=== PATIENT | male | born 1970 | race Caucasian/White ===

== ENCOUNTER 2016-06-28 03:33 | Inpatient (IN) | payer SELFPAY ==
[2016-06-28] MEDS ORDERED: WATER FOR INJECTION,STERILE 10 ML ONE (03:36)
[2016-06-28] MEDS ORDERED: LORAZEPAM INJ 2 MG/ML VIAL ONE ×6 (03:36→05:47)
[2016-06-28] MEDS ORDERED: OLANZAPINE 10 MG VIAL IM ONE ×2 (03:36→04:00)
[2016-06-28] MEDS ORDERED: IV NS 0.9% 2,000 ML ONE (03:41)
[2016-06-28] MEDS ORDERED: IV SET PRIMARY 1 EA INFUS.SET MC ONE ×2 (03:41→05:27)
[2016-06-28] MEDS ORDERED: ASPIRIN 81 MG TAB.CHEW ONE (03:57)
[2016-06-28] MEDS ORDERED: IV NS 0.9% 1,000 ML BAG IV ONE ×2 (04:00→05:30)
[2016-06-28] MEDS ORDERED: ASPIRIN 325 MG TABLET PO ONE (04:00)
[2016-06-28] MEDS ORDERED: LORAZEPAM INJ 2 MG/ML VIAL IVP ONE (04:00)
[2016-06-28] MEDS ORDERED: LORAZEPAM INJ 2 MG/ML VIAL IV ONE ×5 (05:00→06:30)
[2016-06-28] MEDS ORDERED: IV NS 0.9% 1,000 ML ONE (05:27)
[2016-06-28] MEDS ORDERED: IV D5/0.45 NACL 1,000 ML IV ONE ×2 (05:27→06:23)
[2016-06-28] MEDS ORDERED: PROPOFOL 20 ML IV ONE (05:40)
[2016-06-28] MEDS ORDERED: IV SET PRIMARY PUMP SET 1 EA INFUS.SET MC ONE (06:23)
[2016-06-28] MEDS ORDERED: PROPOFOL 200 MG/20 ML VIAL IV ONE (06:30)
[2016-06-28] MEDS ORDERED: IV NS 0.9% 1,000 ML IV PRN (06:35)
[2016-06-28] MEDS ORDERED: Z GUARD REMEDY 2 OZ OINT TP PRN (07:00)
[2016-06-28] MEDS ORDERED: ONDANSETRON HCL/PF 4 MG/2 ML VIAL IVP PRN (07:00)
[2016-06-28] MEDS ORDERED: MAG HYDROX/AL HYDROX/SIMETH 30 ML UDC PO PRN (07:00)
[2016-06-28] MEDS ORDERED: MAGNESIUM HYDROXIDE 30 ML UDC PO PRN (07:00)
[2016-06-28] MEDS ORDERED: ACETAMINOPHEN 325 MG TABLET PO PRN (07:00)
[2016-06-28] MEDS ORDERED: PANTOPRAZOLE 40 MG VIAL IV SCH (09:00)
[2016-06-28] MEDS: LORAZEPAM INJ 2 MG/ML VIAL IV PRN ×2 (09:29→16:56)
== END 2016-06-28 18:45 | disposition left against medical advice (07) | DRG 557 ==
DX: M62.82 Rhabdomyolysis (principal); G93.41 Metabolic encephalopathy; R45.851 Suicidal ideations; F15.93 Other stimulant use, unspecified with withdrawal; F13.239 Sedative, hypnotic or anxiolytic dependence with withdrawal, unspecified; F29 Unspecified psychosis not due to a substance or known physiological condition